=== PATIENT | female | born 1960 | race Caucasian/White ===

== ENCOUNTER 2018-07-29 13:08 | Emergency (ER) | payer BC ==
[2018-07-29 15:02] LABS: ABS Eosinophils 0.2 10^3/ul (0-0.6); ABS Lymphocytes 1.8 10^3/ul (1.0-4.8); ABS Monocytes 0.5 10^3/ul (0-0.8); ABS Neutrophils 5.2 10^3/ul (1.5-7.7); Eosinophil % 2.3 %; Hematocrit 42 % (35-47); Hemoglobin 13.9 g/dL (12.0-16.0); Lymphocyte % 23.1 %; Mean Corpuscular HGB Conc 33 g/dL (31-36); Mean Corpuscular Hemoglobin 29 pg (27-31); Mean Corpuscular Volume 87 fL (80-97); Mean Platelet Volume 7.9 fL (7.4-10.4); Platelet Count 239 10^3/uL (150-450); Red Blood Count 4.87 10^6 /uL (3.70-4.87); Red Cell Distribution Width 14 % (10.5-15); White Blood Count 7.7 10^3/uL (3.5-10.8)
--- NOTE | 2018-07-29 15:09 | ED ---
Headache - HPI Summary HPI Summary: This patient is a 58 year old F presenting to ED with a chief complaint of headache since 1.5 months ago after a chest cold and cough, worse since last night. The CC is described as 24/7 constant, and is rated at 3/10 in severity. Symptoms aggravated by nothing. Symptoms alleviated by nothing. The pain is present primarily on the right frontal side at a specific point and on the left side like a line. The right side is worse than left. Patient denies fevers and chills. Patient reports slight dizziness and right side peripheral blurry vision. Patient is able to walk and all else is normal. Patient hasn't been able to see PCP because she has been busy. PMHx of migraines that are different from this episode, GERD, Schiatskis Ring, anxiety, depression, hiatal hernia, anxiety, depression but no DM, HTN. PSHx of ovarian cyst and gallbladder removed. Patient drinks occasionally but does not use substances or tobacco. FHx of leukemia, kidney cancer, diverticulosis, DM, coronary artery disease. - History Of Current Complaint Chief Complaint: EDHeadache Stated Complaint: HEADACHE PER PT Time Seen by Provider: 07/29/18 14:14 Hx Obtained From: Patient Onset/Duration: Started weeks ago - 1.5 months after chest cold and cough, Still Present, Worse Since - Last night Timing: Constant Location of Headache: Frontal - Right worse than left Aggravating Factor: Nothing Allevating Factors: Nothing Associated Signs And Symptoms: Negative - Fever, chills, Dizziness - Slight, Other (Noted In Comments) - Right peripheral vision affected, able to walk - Allergies/Home Medications Allergies/Adverse Reactions: Allergies Allergy/AdvReac Type Severity Reaction Status Date / Time MS Benzonatate [Benzonatate] Allergy Unknown Unknown Verified 07/29/18 13:26 Reaction Details MS Sulfa Drugs [Sulfa Drugs] Allergy Unknown Unknown Verified 07/29/18 13:26 Reaction Details benzonatate Allergy Unknown Verified 07/29/18 14:38 Reaction Details cephalexin Allergy Unknown Verified 07/29/18 13:26 Reaction Details Sulfa (Sulfonamide Allergy Unknown Verified 07/29/18 14:38 Antibiotics) Reaction Details DECONGESTANTS Allergy Tachycardia Uncoded 07/29/18 13:26 PMH/Surg Hx/FS Hx/Imm Hx Previously Healthy: No Endocrine/Hematology History: Denies: Hx Diabetes Cardiovascular History: Denies: Hx Hypertension, Hx Pacemaker/ICD, Other Cardiovascular Problems/ Disorders Respiratory History: Reports: Hx Asthma, Hx Sleep Apnea Denies: Other Respiratory Problems/Disorders GI History: Reports: Hx Gastroesophageal Reflux Disease, Hx Hiatal Hernia, Hx Irritable Bowel, Other GI Disorders - Schiatski's Ring History: Denies: Hx Renal Disease Sensory History: Denies: Hx Hearing Aid Neurological History: Reports: Hx Headaches, Hx Migraine Psychiatric History: Reports: Hx Anxiety, Hx Depression Denies: Hx Panic Disorder - Surgical History Surgery Procedure, Year, and Place: wisdom teeth. ovarian cyst. GALLBLADDER REMOVED 2018 Infectious Disease History: No Infectious Disease History: Denies: Traveled Outside the [place] in Last 30 Days - Family History Known Family History: Positive: Diabetes Family History: Leukemia, kidney cancer, diverticulosis, coronary artery disease , Alzheimer's mother - Social History Alcohol Use: Occasionally Hx Substance Use: No Substance Use Type: Reports: None Hx Tobacco Use: No Smoking Status (MU): Never Smoked Tobacco Review of Systems Negative: Fever, Chills Positive: Other - Right peripheral vision affected Neurological: Other - Slight dizziness Positive: Headache All Other Systems Reviewed And Are Negative: Yes Physical Exam - Summary Physical Exam Summary: VITAL SIGNS: Reviewed. GENERAL: Patient is a well-developed and nourished female who is lying comfortable in the stretcher.Patient is not in any acute respiratory distress. HEAD AND FACE: No signs of trauma. No ecchymosis, hematomas or skull depressions. No sinus tenderness. EYES: PERRLA, EOMI x 2, No injected conjunctiva, no nystagmus. No photophobia. EARS: Hearing grossly intact. Ear canals and tympanic membranes are within normal limits. MOUTH: Oropharynx within normal limits. NECK: Supple, trachea is midline, no adenopathy, no JVD, no carotid bruit, no c- spine tenderness, neck with full ROM. No meningeal signs, no Kernig's or brudzinskis signs. CHEST: Symmetric, no tenderness at palpation LUNGS: Clear to auscultation bilaterally. No wheezing or crackles. CVS: Regular rate and rhythm, S1 and S2 present, no murmurs or gallops appreciated. ABDOMEN: Soft, non-tender. No signs of distention. No rebound no guarding, and no masses palpated. Bowel sounds are normal. EXTREMITIES: FROM in all major joints, no edema, no cyanosis or clubbing. NEURO: Alert and oriented x 3. No acute neurological deficits. Speech is normal and follows commands. SKIN: Dry and warm GCS: 15 Triage Information Reviewed: Yes Vital Signs On Initial Exam: Initial Vitals Temp Pulse Resp BP Pulse Ox 99.3 F 75 16 151/94 97 07/29/18 13:20 07/29/18 13:20 07/29/18 13:20 07/29/18 13:20 07/29/18 13:20 Vital Signs Reviewed: Yes Diagnostics - Vital Signs Vital Signs Temp Pulse Resp BP Pulse Ox 07/29/18 13:20 99.3 F 75 16 151/94 97 - Laboratory Lab Results: Lab Results 07/29/18 07/29/18 Range/Units 14:54 14:54 WBC 7.7 (3.5-10.8) 10^3/uL RBC 4.87 (3.70-4.87) 10^6 /uL Hgb 13.9 (12.0-16.0) g/dL Hct 42 (35-47) % MCV 87 (80-97) fL MCH 29 (27-31) pg MCHC 33 (31-36) g/dL RDW 14 (10.5-15) % Plt Count 239 (150-450) 10^3/uL MPV 7.9 (7.4-10.4) fL Neut % (Auto) 68.4 % Lymph % (Auto) 23.1 % [place] % (Auto) 5.9 % Eos % (Auto) 2.3 % Baso % (Auto) 0.3 % Absolute Neuts (auto) 5.2 (1.5-7.7) 10^3/ul Absolute Lymphs (auto) 1.8 (1.0-4.8) 10^3/ul Absolute Monos (auto) 0.5 (0-0.8) 10^3/ul Absolute Eos (auto) 0.2 (0-0.6) 10^3/ul Absolute Basos (auto) 0.0 (0-0.2) 10^3/ul Absolute Nucleated RBC 0.0 10^3/ul Nucleated RBC % 0.0 ESR Pending Carbon Monoxide Screen <4.0 (<4.0) % Result Diagrams: 07/29/18 14:54 07/29/18 14:54 Lab Statement: Any lab studies that have been ordered have been reviewed, and results considered in the medical decision making process. - CT CT Brain CT Interpretation Completed By: Radiologist Summary of CT Findings: NO EVIDENCE FOR ACUTE INTRACRANIAL ABNORMALITY. Dr. Knight has reviewed this radiology report. Re-Evaluation - Re-Evaluation First Eval Re-Evaluation Time: 16:29 Comment: Discussed results with patient. Patient requests CTA. Second Eval Re-Evaluation Time: 16:33 Comment: Following consultation with Dr. Puga, discussed with patient regarding Dr. Puga's advice against CTA and instead recommendation for MRI as an outpatient. Patient will be discharged with dx of headache. Patient understands and agrees with this plan. Headache Course/Dx - Course Assessment/Plan: This patient is a 58-year-old female who presents to the emergency department with a chief complaint of having a headache for one month and a half. She reports that she is be having a headache after she had forcible coughing when she had an upper respiratory tract infection. Patient denies any neck pain, denies any photophobia, denies any visual changes. The pain is only in one specific area in the right temporal and left temporal area. Patient declined any pain medications since the pain is only 3 out of 10. Physical exam reveals no meningeal signs. No neck stiffness. She reports that she only wants to have a imaging of the brain. Neurological exam is intact. Blood work without any significant abdominal any excessive potassium level of 5.1, glucose 122, lactic acid is 2.4. Patient doesnt have any signs or symptoms of infection therefore I believe that the lactic acid is increased secondary to the increased glucose. Head CT impression: no evidence for acute intracranial abnormality. In the ED course the patient has remained stable. Again, she declines anything for pain and she declined IV fluids. When I discussed my physical exam and findings and test results with the patient she requested to do as CTA. Therefore, I discussed my physical exam findings and test results with Dr. Puga from neurology and he really does not recommend to do as CTA but he recommends is an MRI and MRA as an outpatient. He recommends to follow up with the primary care physician will order the MRI and MRA. I discussed at length with the patient about the recommendations from neurology however the patient is not happy with and his recommendations. The patient feels that she needs a CTA today. However she doesnt have any neurological deficits, and her pain reports that his left 3 out of 10 however she doesnt want any pain medications. Therefore the patient will be discharged home with follow-up with Dr. Orr from neurology with whom she has an appointment. At this point I discussed all the findings and test results with the patient. He was instructed to return to the emergency room immediately if any of the symptoms return or worsens. They understand and agree. Neurological exam before discharge: Patient is alert and oriented x 3. No acute neurological deficits. Patient vital signs are stable. Patient is to follow up with CPP in the next 2 3 days. They understand and agree. Plan of care was discussed with the patient and patient understands and agrees with the plan of care. All questions were answered at patient satisfaction. There were no further complaints or concerns. - Diagnoses Provider Diagnoses: Headache - Physician Notifications Discussed Care Of Patient With: Sean Puga Time Discussed With Above Provider: 16:29 Instructed by Provider To: Other - Discussed patient case with Dr. Puga, neurologist, who advised against a CTA and recommended an MRI as an outpatient with the patient's PCP. Discharge - Sign-Out/Discharge Documenting (check all that apply): Patient Departure - Discharge Patient Received Moderate/Deep Sedation with Procedure: No - Discharge Plan Condition: Stable Disposition: HOME Patient Education Materials: Acute Headache (ED) Referrals: Poonam Flores MD [Primary Care Provider] - 3 Days Hussein Orr MD [Medical Doctor] - Additional Instructions: We consulted with Dr. Puga from neurology and he recommends for patient to follow-up with primary care physician for a possible order of MRI and MRA of the brain as an outpatient. RETURN THE ER FOR CHANGING OR WORSENING SYMPTOMS. - Billing Disposition and Condition Condition: STABLE Disposition: Home - Attestation Statements Document Initiated by Scribe: Yes Documenting Scribe: Rodney Potts Provider For Whom Manuel is Documenting (Include Credential): Lavon Knight MD Scribe Attestation: Rodney Carlos, scribed for Lavon Knight MD on 07/29/18 at 2131. Scribe Documentation Reviewed: Yes Provider Attestation: The documentation as recorded by the Rodney woods accurately reflects the service I personally performed and the decisions made by me, Lavon Knight MD Status of Scribe Document: Viewed
[2018-07-29 15:18] LABS: Albumin 4.4 g/dL (3.2-5.2); Albumin/Globulin Ratio 1.5 (1-3); BUN/Creatinine Ratio 21.1 (8-20); EGFR African American 73.6 (>60); EGFR Non-African American 60.9 (>60); Total Bilirubin 0.2 mg/dL (0.2-1.0); Total Protein 7.4 g/dL (6.4-8.9)
[2018-07-29 16:08] LABS: Potassium 5.1 mmol/L (3.5-5.0)
[2018-07-29 16:17] LABS: Erythrocyte Sed Rate 6 mm/Hr (0-29)
[2018-07-29 16:52] VITALS: BP 139/87
== END 2018-07-29 17:00 | disposition home or self-care (01) ==
LOC: ED 13:08
DX: R51 Headache (principal); Z88.2 Allergy status to sulfonamides; Z87.09 Personal history of other diseases of the respiratory system; K21.9 Gastro-esophageal reflux disease without esophagitis; Z87.19 Personal history of other diseases of the digestive system
CPT/HCPCS: 36415; 70450; 80053; 82375; 83605; 85025; 85652; 99283